=== PATIENT | male | born 1960 | race African-American/Black ===

== ENCOUNTER 2020-02-04 06:44 | Inpatient (IN) | payer BC ==
[~2020-02-04] VITALS: Ht 180.3 cm; Wt 52.6 kg
[2020-02-04] MEDS ORDERED: ADENOSINE 3 MG/ML 2ML VIAL IV ONE ×3 (06:55→07:15)
[2020-02-04] MEDS ORDERED: DILTIAZEM HCL 125 MG in DEXT 5% WATER 100 ML IV ONE (07:15)
[2020-02-04 07:33] LABS: CHLORIDE 102 mEq/L (98-107)
[2020-02-04 07:35] LABS: HEMATOCRIT. 28.7 % (42.0-52.0); HEMOGLOBIN. 9.1 g/dL (14.0-18.0); MEAN CORPUSCULAR HEMOGLOBIN 25.4 pg (28.0-32.0); MEAN CORPUSCULAR VOLUME 80.4 fL (80.0-94.0); MEAN PLATELET VOLUME 6.6 fl (7.4-10.4); PLATELET 718 x1000/uL (130-400); RED BLOOD CELL COUNT 3.57 mill/uL (4.7-6.1); RED CELL DISTRIBUTION WIDTH 16.8 % (11.6-14.6)
[2020-02-04] MEDS ORDERED: AMIODARONE HCL 50MG/ML 3ML VIAL IV ONE ×2 (07:37→11:15)
[2020-02-04] MEDS ORDERED: AMIODARONE HCL 900 MG in DEXT 5% WATER 500 ML IV ONE (07:45)
[2020-02-04] MEDS ORDERED: AMIODARONE HCL 150 MG in DEXT 5% WATER 100 ML IV ONE (07:45)
[2020-02-04] MEDS ORDERED: LORAZEPAM 2MG/ML CPJ IV ONE (07:45)
[2020-02-04] MEDS ORDERED: LORAZEPAM 2MG/ML CPJ ONE (07:45)
[2020-02-04] MEDS ORDERED: AMIODARONE HCL 900 MG in DEXT 5% WATER 482 ML IV ONE (07:45)
[2020-02-04 08:06] LABS: PLATELET ESTIMATE INCREASED
[2020-02-04 08:27] LABS: D-DIMER 1.02 mg/L FEU (<0.50); INR 1.1; PROTHROMBIN TIME 11.6 sec (9.6-11.0)
[2020-02-04] MEDS ORDERED: LEVOFLOXACIN 750MG PREMIX 150 ML IV ONE (09:30)
[2020-02-04] MEDS ORDERED: ENOXAPARIN 60MG/0.6ML SYR SUBCUT ONE (10:15)
[2020-02-04] MEDS ORDERED: LORAZEPAM 0.5MG TABLET PO PRN (10:30)
[2020-02-04] MEDS ORDERED: DILTIAZEM HCL 125 MG in DEXT 5% WATER 100 ML IV PRN (10:30)
[2020-02-04] MEDS ORDERED: CLONIDINE 0.1MG TABLET PO PRN (10:30)
[2020-02-04] MEDS ORDERED: ACETAMINOPHEN 650MG/20.3ML UDC GT PRN (10:30)
[2020-02-04] MEDS ORDERED: ONDANSETRON HCL 4MG/2ML INJ IV PRN (10:30)
[2020-02-04] MEDS ORDERED: DOCUSATE SODIUM 100MG CAPSULE PO PRN (10:30)
[2020-02-04] MEDS ORDERED: NA PHOS,M-B/NA PHOS,DI-BA ENEMA 118ML PR PRN (10:30)
[2020-02-04] MEDS ORDERED: ACETAMINOPHEN 325MG TABLET PO PRN (10:30)
[2020-02-04] MEDS ORDERED: GUAIFENESIN 200MG/10ML SUGAR FREE UDC PO PRN (10:30)
[2020-02-04] MEDS ORDERED: IPRATROPIUM/ALBUTEROL 0.5-3(2.5)MG/3ML NEB NEB PRN (10:30)
[2020-02-04] MEDS ORDERED: MAGNESIUM/ALUMINUM HYDROXIDE/SIMETHICONE 30ML UDC PO PRN (10:30)
[2020-02-04] MEDS ORDERED: ACETAMINOPHEN 650MG SUPP PR PRN (10:30)
[2020-02-04] MEDS ORDERED: DIPHENHYDRAMINE 50MG/ML VIAL IV PRN (10:30)
[2020-02-04] MEDS ORDERED: DILTIAZEM HCL 30MG TABLET PO SCH (12:00)
[2020-02-04 12:16] LABS: BG BASE EXCESS 0.5 mmol/L (-2.0-2.0); BG CARBOXYHEMOGLOBIN 0.3 % (0.5-1.5); BG DEOXYHEMOGLOBIN 0.8 % (0.0-5.0); BG FRACTION INSPIRED OXYGEN 36; BG HCO3 ACT 24.3 mmol/L (22.0-26.0); BG METHEMOGLOBIN 0.3 % (0.0-1.5); BG OXYGEN SATURATION 99.2 % (92.0-98.5); BG OXYHEMOGLOBIN 98.6 % (94.0-97.0); BG PCO2 35.7 mmHg (35.0-45.0); BG PH 7.451 (7.350-7.450); BG PO2 156.8 mmHg (75.0-100.0); BG SAMPLE SITE RIGHT RADIAL; BG TOTAL HEMOGLOBIN 8.5 g/dL (12.0-18.0); BG VENT MODE NASAL CANNULA
[2020-02-04] MEDS ORDERED: AMIODARONE HCL 150 MG in DEXT 5% WATER 100 ML IV NR (13:00)
[2020-02-04] MEDS: AMIODARONE HCL 200 MG TABLET PO SCH ×2 (13:02→21:04)
[2020-02-04] MEDS ORDERED: IPRATROPIUM/ALBUTEROL 0.5-3(2.5)MG/3ML NEB HHN SCH (13:15)
[2020-02-04 14:00] VITALS: BP_SYST 124; BP_DIAS 72; BP_DIAS 74
[2020-02-04] MEDS: ENOXAPARIN 60MG/0.6ML SYR SUBCUT SCH (15:09)
[2020-02-04 16:00] VITALS: BP 119/84
[2020-02-04 16:47] LABS: CREATINE KINASE MB FRACTION 1.4 ng/mL (0.5-3.6)
[2020-02-04] MEDS: DILTIAZEM HCL 60MG TABLET PO SCH (17:55)
[2020-02-04 18:00] VITALS: BP 123/79
[2020-02-04] MEDS: IPRATROPIUM/ALBUTEROL 0.5-3(2.5)MG/3ML NEB HHN SCH (19:47)
[2020-02-04 20:00] VITALS: BP 123/78
[2020-02-04] MEDS: FAMOTIDINE 20MG TABLET PO SCH (20:42)
[2020-02-04 22:00] VITALS: BP 134/71
[2020-02-05] VITALS (12 sets, daily range): BP systolic 108–148; BP diastolic 66–100
[2020-02-05 00:22] LABS: CREATINE KINASE 18 IU/L (39-308)
[2020-02-05 00:24] LABS: CREATINE KINASE MB FRACTION < 1.0 ng/mL (0.5-3.6)
[2020-02-05] MEDS: DILTIAZEM HCL 60MG TABLET PO SCH ×5 (00:34→23:20)
[2020-02-05] MEDS: IPRATROPIUM/ALBUTEROL 0.5-3(2.5)MG/3ML NEB HHN SCH ×5 (00:38→20:18)
[2020-02-05] MEDS: ENOXAPARIN 60MG/0.6ML SYR SUBCUT SCH ×2 (00:42→14:14)
[2020-02-05] MEDS: AMIODARONE HCL 200 MG TABLET PO SCH ×3 (05:10→21:14)
[2020-02-05 06:16] LABS: HEMATOCRIT. 25.6 % (42.0-52.0); HEMOGLOBIN. 8.2 g/dL (14.0-18.0); MEAN CORPUSCULAR HEMOGLOBIN 25.1 pg (28.0-32.0); MEAN PLATELET VOLUME 6.8 fl (7.4-10.4); PLATELET 729 x1000/uL (130-400); RED BLOOD CELL COUNT 3.28 mill/uL (4.7-6.1)
[2020-02-05 06:28] LABS: CHLORIDE 103 mEq/L (98-107)
[2020-02-05 06:35] LABS: LDL CHOLESTEROL 83 mg/dL (5-100)
[2020-02-05 06:36] LABS: HDL CHOLESTEROL 31 mg/dL (40-59)
[2020-02-05 06:39] LABS: T4 FREE 1.46 ng/dL (0.76-1.46)
[2020-02-05 06:42] LABS: TOTAL IRON BINDING CAPACITY 170 ug/dL (250-450)
[2020-02-05 08:19] LABS: VITAMIN B12 SERUM > 2000.0 pg/mL (211-911)
[2020-02-05] MEDS: ASPIRIN 81MG EC TABLET PO SCH (08:37)
[2020-02-05] MEDS ORDERED: LEVOFLOXACIN 500MG PREMIX 100 ML IV SCH (09:00)
[2020-02-05 10:54] LABS: ATYPICAL LYMPHOCYTES 1
[2020-02-05 10:55] LABS: PLATELET ESTIMATE INCREASED
[2020-02-05] MEDS ORDERED: POTASSIUM CHLORIDE 20MEQ TABLET SR PO SCH (12:00)
[2020-02-05] MEDS ORDERED: FERROUS SULFATE 325MG TABLET PO SCH (12:20)
[2020-02-05] MEDS: FERROUS SULFATE 325MG TABLET PO SCH ×2 (14:12→18:34)
[2020-02-05] MEDS: METHYLPREDNISOLONE SOD SUCC 40 MG/ML VIAL IV SCH (18:35)
[2020-02-05 20:21] LABS: HEMATOCRIT 26.6 % (42.0-52.0); HEMOGLOBIN 8.5 g/dL (14.0-18.0)
[2020-02-05] MEDS: FAMOTIDINE 20MG TABLET PO SCH (21:13)
[2020-02-06] VITALS (12 sets, daily range): BP systolic 104–129; BP diastolic 60–82
[2020-02-06] MEDS: IPRATROPIUM/ALBUTEROL 0.5-3(2.5)MG/3ML NEB HHN SCH ×4 (03:22→21:09)
[2020-02-06] MEDS: AMIODARONE HCL 200 MG TABLET PO SCH ×2 (05:10→21:02)
[2020-02-06] MEDS: DILTIAZEM HCL 60MG TABLET PO SCH ×3 (05:10→16:55)
[2020-02-06] MEDS: HYDROCODONE/ACETAMINOPHEN 5/325MG TABLET PO PRN ×2 (05:11→15:57)
[2020-02-06] MEDS: ASPIRIN 81MG EC TABLET PO SCH (07:45)
[2020-02-06] MEDS: METHYLPREDNISOLONE SOD SUCC 40 MG/ML VIAL IV SCH ×2 (07:45→16:51)
[2020-02-06] MEDS: FERROUS SULFATE 325MG TABLET PO SCH ×3 (07:45→16:51)
[2020-02-06 07:49] LABS: HEMATOCRIT. 25.3 % (42.0-52.0); MEAN CORPUSCULAR HEMOGLOBIN 24.8 pg (28.0-32.0); MEAN CORPUSCULAR VOLUME 78.2 fL (80.0-94.0); MEAN PLATELET VOLUME 7.3 fl (7.4-10.4); PLATELET 845 x1000/uL (130-400); RED BLOOD CELL COUNT 3.23 mill/uL (4.7-6.1); RED CELL DISTRIBUTION WIDTH 16.8 % (11.6-14.6)
[2020-02-06 07:52] LABS: CHLORIDE 100 mEq/L (98-107)
[2020-02-06] MEDS: ACETYLCYSTEINE 100MG/ML 10% VIAL 4ML INH SCH ×2 (08:00→14:49)
[2020-02-06] MEDS: LEVOFLOXACIN 500MG PREMIX 100 ML IV SCH (10:44)
[2020-02-06] MEDS ORDERED: MAGNESIUM 2 G PREMIX 50 ML IV NR (12:00)
[2020-02-06 13:24] LABS: PLATELET ESTIMATE MARKEDLY INCREASED
[2020-02-06] MEDS: FAMOTIDINE 20MG TABLET PO SCH (21:01)
[2020-02-07] VITALS (10 sets, daily range): BP systolic 115–141; BP diastolic 67–83
[2020-02-07] MEDS: DILTIAZEM HCL 60MG TABLET PO SCH ×3 (01:33→12:17)
[2020-02-07] MEDS: IPRATROPIUM/ALBUTEROL 0.5-3(2.5)MG/3ML NEB HHN SCH ×2 (02:23→11:36)
[2020-02-07] MEDS: ACETYLCYSTEINE 100MG/ML 10% VIAL 4ML INH SCH ×2 (02:23→09:40)
[2020-02-07 08:06] LABS: HEMATOCRIT 24.2 % (42.0-52.0); HEMOGLOBIN 7.7 g/dL (14.0-18.0); MEAN CORPUSCULAR HEMOGLOBIN 24.8 pg (28.0-32.0); MEAN CORPUSCULAR VOLUME 77.7 fL (80.0-94.0); PLATELET 853 x1000/uL (130-400); RED BLOOD CELL COUNT 3.12 mill/uL (4.7-6.1)
[2020-02-07 08:16] LABS: CHLORIDE 98 mEq/L (98-107)
[2020-02-07] MEDS: AMIODARONE HCL 200 MG TABLET PO SCH (08:38)
[2020-02-07] MEDS: METHYLPREDNISOLONE SOD SUCC 40 MG/ML VIAL IV SCH ×2 (08:38→17:00)
[2020-02-07] MEDS: FERROUS SULFATE 325MG TABLET PO SCH ×2 (08:38→12:16)
[2020-02-07] MEDS: LEVOFLOXACIN 500MG PREMIX 100 ML IV SCH (08:39)
[2020-02-07] MEDS: ASPIRIN 81MG EC TABLET PO SCH (08:39)
[2020-02-07 11:12] LABS: BG BASE EXCESS 0.9 mmol/L (-2.0-2.0); BG CARBOXYHEMOGLOBIN 0.3 % (0.5-1.5); BG DEOXYHEMOGLOBIN 9.9 % (0.0-5.0); BG FRACTION INSPIRED OXYGEN 21; BG HCO3 ACT 23.9 mmol/L (22.0-26.0); BG OXYGEN SATURATION 90.1 % (92.0-98.5); BG OXYHEMOGLOBIN 89.8 % (94.0-97.0); BG PCO2 31.7 mmHg (35.0-45.0); BG PH 7.495 (7.350-7.450); BG PO2 57.4 mmHg (75.0-100.0); BG SAMPLE SITE RIGHT BRACHIAL; BG TOTAL HEMOGLOBIN 9.3 g/dL (12.0-18.0); BG VENT MODE ROOM AIR
[2020-02-07 12:30] LABS: HEMATOCRIT 25.6 % (42.0-52.0); HEMOGLOBIN 8.2 g/dL (14.0-18.0)
[2020-02-07] MEDS ORDERED: MORPHINE SULFATE 2 MG/ML CPJ (NOT FOR IM USE) IV SCH (15:15)
[2020-02-08] MEDS ORDERED: LEVOFLOXACIN 500MG TABLET PO SCH (11:00)
== END 2020-02-07 17:44 | disposition hospice, home (50) | DRG 871 ==
LOC: ER 06:44 → 3WST 10:14 → EDBEDREQTM 10:16 → EDBEDREQ 10:16 → SUPCPDRO 10:27 → ENRESERV 10:58
PROVIDERS: ADMIT Internal Medicine; ATTEND Internal Medicine
PROC: 5A2204Z Restoration of Cardiac Rhythm, Single (ICD-10-PCS; principal; 2020-02-04)
DX: A41.9 Sepsis, unspecified organism (principal); J18.9 Pneumonia, unspecified organism; D68.59 Other primary thrombophilia; J91.8 Pleural effusion in other conditions classified elsewhere; I48.91 Unspecified atrial fibrillation; R06.03 Acute respiratory distress; I10 Essential (primary) hypertension; D64.9 Anemia, unspecified; E27.9 Disorder of adrenal gland, unspecified; E83.52 Hypercalcemia; J43.9 Emphysema, unspecified; R73.9 Hyperglycemia, unspecified; D50.9 Iron deficiency anemia, unspecified; D47.3 Essential (hemorrhagic) thrombocythemia; E87.6 Hypokalemia; Z79.82 Long term (current) use of aspirin; Z92.21 Personal history of antineoplastic chemotherapy; Z85.118 Personal history of other malignant neoplasm of bronchus and lung
CPT/HCPCS: 36415; 36600; 71045; 71275; 74176; 80048; 80053; 80061; 82330; 82375; 82550; 82553; 82607; 82805; 82962; 83540; 83550; 83735; 83880; 84439; 84443; 84484; 85014; 85018; 85025; 85027; 85379; 86850; 86900; 92610; 93005; 93306; 93970; 97110; 97162; 97530; 99291; J0153; J0282; J1650; J1956; J2060; J2270; J2920; J3475; J3490; J7060; J7608